=== PATIENT | female | born 1970 | race Caucasian/White ===

== ENCOUNTER 2018-03-12 20:17 | Emergency (ER) | payer OTHER ==
[~2018-03-12] VITALS: Ht 160 cm; Wt 63.5 kg
[~2018-03-12 20:17] MED LIST: AMBIEN 10 MG TA10 MG PO; CLONAZEPAM; NOHOMEMEDICATIONS; PROAIR RESPICL90 MCG IH; TRAMADOL 50 MG50 MG PO; ZPAK PO
[2018-03-12 21:26] LABS: URINE BILIRUBIN NEGATIVE (Negative); URINE BLOOD TRACE (Negative); URINE CLARITY CLEAR; URINE COLOR YELLOW; URINE GLUCOSE-RANDOM NEGATIVE (Negative); URINE KETONES NEGATIVE (Negative); URINE LEUKOCYTES NEGATIVE (Negative); URINE NITRITE NEGATIVE (Negative); URINE PROTEIN NEGATIVE (Negative); URINE SPECIFIC GRAVITY 1.025 (1.005-1.030); URINE UROBILINOGEN 0.2 E.U./dl (0.2-1.0)
[2018-03-12 21:28] LABS: ABSOLUTE BASOPHILS 0.1 thou/uL (0.0-0.2); ABSOLUTE EOSINOPHILS 0.1 thou/uL (0.0-0.7); ABSOLUTE LYMPHOCYTES 3.5 thou/uL (0.8-5.3); ABSOLUTE MONOCYTES 0.6 thou/uL (0.0-1.2); BASOPHILS 0.7 %; EOSINOPHILS 1.4 %; HEMATOCRIT 41.6 % (37.0-47.0); HEMOGLOBIN 13.8 gm/dL (12.0-15.0); LYMPHOCYTES 42.1 %; MCH 32.2 pg (26.0-34.0); MCHC 33.2 g/dL (28.0-37.0); MCV 96.9 fL (80.0-100.0); MONOCYTES 7.6 %; MPV 8.1 fl. (7.2-11.1); NUCLEATED RBCS 0 /100WBC; PLATELET COUNT* 187 thou/uL (150-400); POLYS 48.2 %; RBC 4.29 mil/uL (4.20-5.00); RDW-CV 13.4 % (10.5-14.5); WBC 8.3 thou/uL (4.0-11.0)
[2018-03-12 21:32] LABS: AMP/METHAMP Negative (Negative); BARBITURATES Negative (Negative); BENZODIAZEPINES Negative (Negative); COCAINE Negative (Negative); METHADONE Negative (Negative); OPIATES Negative (Negative); PCP Negative (Negative); THC POSITIVE (Negative)
[2018-03-12 21:38] LABS: ANION GAP 5 mmol/L (7-16); BUN 14 mg/dL (7-18); CALCIUM 8.5 mg/dL (8.5-10.1); CHLORIDE 104 mmol/L (98-107); CO2 30 mmol/L (21-32); CREATININE 1.2 mg/dL (0.6-1.3); GLUCOSE 84 mg/dL (70-99); POTASSIUM 3.9 mmol/L (3.5-5.1); SODIUM 139 mmol/L (136-145)
[2018-03-12 21:49] LABS: ALBUMIN 3.8 g/dL (3.4-5.0); ALKALINE PHOSPHATASE 68 U/L (46-116); LIPASE 263 U/L (73-393); NT-PRO BRAIN NAT PEPTIDE 143 pg/mL (<300); SGOT 25 U/L (15-37); SGPT 32 U/L (30-65); TOTAL BILIRUBIN 0.2 mg/dL (<0.1-1.0); TOTAL PROTEIN 7.1 g/dL (6.4-8.2); TROPONIN-I LEVEL <0.06 ng/mL (<0.06)
[2018-03-12] MEDS ORDERED: MEDROLDOSEPACK PO (22:06)
[2018-03-12] MEDS ORDERED: ONDANSETRON HCL4 M2 PO (22:06)
[2018-03-12] MEDS ORDERED: NABUMETONE 750750 M1 PO (22:06)
[2018-03-12] MEDS ORDERED: TRAMADOL 50 MG50 MG PO (22:06)
[2018-03-12] MEDS ORDERED: NEURONTIN 300300 M1 PO (22:06)
[2018-03-12 23:04] VITALS: BP 141/80
--- NOTE | 2018-03-13 09:05 | EKG ---
[place] [address] ELECTROCARDIOGRAM REPORT Name: JAZZMINE WINSLOW Room: [facility]#: [id number] Admission: 03/12/18 Attend Phys: Discharge: 03/12/18 Date of : 74 Report #: [id number] THIS REPORT FOR: //name// [facility] ED Test Date: 2018-03-12 Test Time: 22:05:12 Pat Name: JAZZMINE WINSLOW Department: Room: Gender: F Top Executive: EMMANUEL : 1970 Requested By: Toma Blanco Order Number: [id number] MD: Chito Mccarty Measurements Intervals [place] Rate: 61 P: 79 W[place]: 179 QRS: 76 QRSD: 95 T: 48 QT: 393 QTc: 396 Interpretive Statements Sinus rhythm No previous ECG available for comparison Electronically Signed On 03-13-2018 9:05:45 [employer]IEF MAINTENANCE SUPERVISOR by Chito Mccarty [email or web address] <ELECTRONICALLY SIGNED> By: Chito Mccarty MD, [facility] 03/13/18 0905 [id number] Chito Mccarty MD, FACC /EPI
== END 2018-03-12 23:05 | disposition home or self-care (01) ==
LOC: M.ERS 20:17
PROVIDERS: Nurse Practitioner Family
DX: M65.4 Radial styloid tenosynovitis [de Quervain] (principal); M25.842 Other specified joint disorders, left hand; M54.6 Pain in thoracic spine; F17.210 Nicotine dependence, cigarettes, uncomplicated; Z88.0 Allergy status to penicillin; Z88.2 Allergy status to sulfonamides; Z88.5 Allergy status to narcotic agent

== ENCOUNTER 2019-11-11 14:06 | Emergency (ER) | payer MEDICAID ==
[~2019-11-11] VITALS: Ht 160 cm; Wt 77.1 kg
[~2019-11-11 14:06] MED LIST changes: +MEDROLDOSEPACK PO; +NABUMETONE 750750 M1 PO; +NEURONTIN 300300 M1 PO; +ONDANSETRON HCL4 M2 PO
[2019-11-11] MEDS ORDERED: SEROQUEL 25 MG25 M1 PO (14:23)
[2019-11-11 15:00] LABS: ABSOLUTE BASOPHILS 0.1 thou/uL (0.0-0.2); ABSOLUTE EOSINOPHILS 0.1 thou/uL (0.0-0.7); ABSOLUTE LYMPHOCYTES 2.1 thou/uL (0.8-5.3); ABSOLUTE MONOCYTES 0.6 thou/uL (0.0-1.2); ABSOLUTE NEUTROPHILS 3.6 thou/uL (1.6-8.1); BASOPHILS 1.2 %; EOSINOPHILS 1.7 %; HEMATOCRIT 43.4 % (37.0-47.0); HEMOGLOBIN 14.8 gm/dL (12.0-15.0); LYMPHOCYTES 32.9 %; MCV 96.8 fL (80.0-100.0); MONOCYTES 8.7 %; MPV 8.1 fl. (7.2-11.1); NUCLEATED RBCS 0 /100WBC; PLATELET COUNT* 163 thou/uL (150-400); POLYS 55.5 %; RBC 4.48 mil/uL (4.20-5.00); RDW-CV 13.3 % (10.5-14.5); WBC 6.5 thou/uL (4.0-11.0)
[2019-11-11 15:09] LABS: CALCIUM 8.4 mg/dL (8.5-10.1); CREATININE 0.9 mg/dL (0.6-1.3); POTASSIUM 3.9 mmol/L (3.5-5.1)
[2019-11-11 15:14] LABS: ALBUMIN 3.6 g/dL (3.4-5.0); TOTAL BILIRUBIN 0.4 mg/dL (<0.1-1.0); TOTAL PROTEIN 7.1 g/dL (6.4-8.2)
[2019-11-11] MEDS ORDERED: ONDANSETRON HCL4 M2 PO (16:19)
[2019-11-11] MEDS ORDERED: TRAMADOL 50 MG50 MG PO (16:19)
[2019-11-11] MEDS ORDERED: MEDROLDOSEPACK PO (16:19)
[2019-11-11 16:25] VITALS: BP 140/70
== END 2019-11-11 16:29 | disposition home or self-care (01) ==
LOC: M.ERS 14:06
PROVIDERS: Nurse Practitioner Family
DX: M19.011 Primary osteoarthritis, right shoulder (principal); M79.621 Pain in right upper arm; Z88.0 Allergy status to penicillin; Z88.2 Allergy status to sulfonamides; Z88.5 Allergy status to narcotic agent; Z88.8 Allergy status to other drugs, medicaments and biological substances; Z98.51 Tubal ligation status; Z90.89 Acquired absence of other organs

== ENCOUNTER 2019-11-19 15:19 | Emergency (ER) | payer MEDICAID ==
[~2019-11-19] VITALS: Ht 160 cm; Wt 79.4 kg
[~2019-11-19 15:19] MED LIST changes: +SEROQUEL 25 MG25 M1 PO
[2019-11-19] MEDS ORDERED: LIDODERM1 EACH TRANSDERM (16:20)
[2019-11-19] MEDS ORDERED: TRAMADOL 50 MG50 MG PO (16:20)
[2019-11-19] MEDS ORDERED: NAPROSYN500 MG PO (16:20)
[2019-11-19 16:37] VITALS: BP 169/78
== END 2019-11-19 16:37 | disposition home or self-care (01) ==
LOC: M.ERS 15:19
DX: M25.511 Pain in right shoulder (principal); R60.9 Edema, unspecified; F17.210 Nicotine dependence, cigarettes, uncomplicated; Z88.5 Allergy status to narcotic agent; Z88.0 Allergy status to penicillin; Z88.2 Allergy status to sulfonamides; Z88.8 Allergy status to other drugs, medicaments and biological substances; Z98.51 Tubal ligation status; Z90.89 Acquired absence of other organs

== ENCOUNTER 2020-10-21 17:40 | Emergency (ER) | payer MEDICAID ==
[~2020-10-21] VITALS: Ht 160 cm; Wt 72.6 kg
[~2020-10-21 17:40] MED LIST changes: +LIDODERM1 EACH TRANSDERM; +NAPROSYN500 MG PO
[2020-10-21 20:51] VITALS: BP 152/101
[2020-10-22] MEDS ORDERED: XANAX 0.5 MG0.5 MG PO (12:40)
--- NOTE | 2020-10-22 14:43 | EKG ---
[place] [address] ELECTROCARDIOGRAM REPORT Name: JAZZMINE WINSLOW Room: [facility]#: [id number] Admission: 10/21/20 Attend Phys: Discharge: 10/21/20 Date of : 74 Date of Service: 10/21/201812 Report #: [id number] THIS REPORT FOR: //name// [facility] ED Test Date: 2020-10-21 Test Time: 18:13:54 Pat Name: JAZZMINE WINSLOW Department: Room: Gender: Rn Delivery: TDS : 1970 Requested By: Geoff Marin Order Number: [id number] Olayinka MD: Chito Mccarty Measurements Intervals [place] Rate: 84 P: 77 AR: 144 QRS: 84 QRSD: 85 T: -19 QT: 373 QTc: 441 Interpretive Statements Sinus rhythm RSR' in V1 or V2, right VCD or RVH Nonspecific T abnormalities, anterior leads Baseline wander in lead(s) II,aVR Compared to ECG 03/12/2018 22:05:12 RSR' in V1 or V2 now present Electronically Signed On 10-22-2020 14:43:27 CDT by Chito Mccarty [email or web address] <ELECTRONICALLY SIGNED> By: Chito Mccarty MD, FACC 10/22/20 1443 12 12 Chito Mccaryt MD, [facility] /EPI
== END 2020-10-21 20:56 | disposition left against medical advice (07) ==
LOC: M.ERS 17:40
DX: Z53.21 Procedure and treatment not carried out due to patient leaving prior to being seen by health care provider (principal)

== ENCOUNTER 2020-10-22 11:27 | Emergency (ER) | payer MEDICAID ==
[~2020-10-22] VITALS: Ht 160 cm; Wt 72.6 kg
[2020-10-22] MEDS ORDERED: XANAX 0.5 MG0.5 MG PO (12:40)
[2020-10-22 12:48] VITALS: BP 146/72
== END 2020-10-22 12:48 | disposition home or self-care (01) ==
LOC: M.ERS 11:27
DX: F41.9 Anxiety disorder, unspecified (principal); Z88.5 Allergy status to narcotic agent; Z88.0 Allergy status to penicillin; Z88.2 Allergy status to sulfonamides; Z90.89 Acquired absence of other organs; Z98.51 Tubal ligation status